=== PATIENT | male | born 1965 | race Caucasian/White ===

== ENCOUNTER 2020-01-23 16:15 | Emergency (ER) | payer SELFPAY ==
[~2020-01-23] VITALS: Wt 104.3 kg
== END 2020-01-23 17:35 | disposition home or self-care (01) ==
LOC: ED 16:15
DX: S68.022A Partial traumatic metacarpophalangeal amputation of left thumb, initial encounter (principal); W31.89XA Contact with other specified machinery, initial encounter; Y93.89 Activity, other specified; Y92.89 Other specified places as the place of occurrence of the external cause; Y99.8 Other external cause status